=== PATIENT | male | born 1960 | race Caucasian/White ===

== ENCOUNTER 2017-06-10 09:19 | Day surgery (SDC) | payer BC ==
[2017-06-07 12:29] VITALS: BMI 25.2
[2017-06-10] VITALS (14 sets, daily range): BP systolic 110–144; BP diastolic 72–84; PULSE 70–84; RESP 12–23; Ht 180.3 cm; Wt 80.9 kg
[~2017-06-10] VITALS: Ht 180.3 cm; Wt 80.9 kg
[~2017-06-10 09:19] MED LIST: EPHEDrine SULFATE 50 MG/5 ML SYG ONE
[2017-06-10] MEDS ORDERED: CEFAZOLIN 2 GM/50 ML (PMX) 50 ML IVPB ONE (10:00)
[2017-06-10] MEDS ORDERED: SOD CHLORIDE 0.9% 1,000 ML IV ONE (10:00)
[2017-06-10] MEDS ORDERED: BUPIVACAINE 0.25% (MPF) 30 ML INJ ONE (10:38)
[2017-06-10] MEDS ORDERED: POLYMYXIN/BACITRACIN 1L IRRIG ONE (11:50)
[2017-06-10] MEDS ORDERED: PROCHLORPERAZINE 10 MG INJ IV PRN (12:00)
[2017-06-10] MEDS ORDERED: OXYCODONE/ACETAMINOPHEN (5/325) TAB PO PRN (12:00)
[2017-06-10] MEDS ORDERED: MEPERIDINE 25 MG INJ IV PRN (12:00)
[2017-06-10] MEDS ORDERED: ONDANSETRON 4 MG INJ IV PRN (12:00)
[2017-06-10] MEDS ORDERED: HYDROmorphONE (0.2 MG/ML) 10ML SYG IV PRN (12:00)
[2017-06-10] MEDS ORDERED: FENTAnyl 50 MCG/ML VIAL IV PRN (12:00)
[2017-06-10] MEDS ORDERED: DIPHENHYDRAMINE 50 MG INJ IV PRN (12:00)
[2017-06-10] MEDS ORDERED: SUCCINYLCHOLINE CHLORIDE 100 MG/5 ML SYG IV ONE (12:53)
[2017-06-10] MEDS ORDERED: PROPOFOL 20 ML ONE (12:53)
[2017-06-10] MEDS ORDERED: LIDOCAINE 2% (SDV) 5 ML INJ ONE (12:53)
[2017-06-10] MEDS ORDERED: ROCURONIUM 50 MG INJ ONE (12:53)
[2017-06-10] MEDS ORDERED: FENTAnyl 50 MCG/ML VIAL ONE (12:53)
[2017-06-10] MEDS ORDERED: MIDAZOLAM 1 MG/ML 2 ML INJ ONE (12:53)
[2017-06-10] MEDS ORDERED: ONDANSETRON 4 MG INJ ONE (13:07)
[2017-06-10] MEDS ORDERED: FAMOTIDINE 20 MG INJ ONE (13:07)
[2017-06-10] MEDS ORDERED: DEXAMETHASONE 4 MG/ML 1 ML INJ ONE (13:07)
[2017-06-10] MEDS ORDERED: CEFAZOLIN 1 GM INJ ONE (13:07)
[2017-06-10] MEDS ORDERED: NEOSTIGMINE 3 MG/3 ML SYRINGE ONE (13:16)
[2017-06-10] MEDS ORDERED: GLYCOPYRROLATE 0.4 MG INJ ONE (13:16)
[2017-06-10] MEDS ORDERED: KETOROLAC 30 MG INJ ONE (13:40)
--- NOTE | 2017-06-10 13:48 | OPR ---
Date/Time of Note Date/Time of Note DATE: 06/10/17 TIME: 13:44 Operative Report Procedure Date: Jun 10, 2017 Preoperative Diagnosis left inguinal hernia large incarcerated Postoperative Diagnosis same Operation/Procedure Performed 1. open left incarcerated inguinal hernia repair with ultrapro hernia system large mesh 2. 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 He requests surgical repair. Risks alternatives benefits and percent were discussed the patient. Patient's best understanding consents to the operation. Procedure Description Patient is taken to the OR and prepped and draped in usual sterile fashion. Surgical timeout was performed. IV antibiotics given. Left inguinal oblique incision is made with a 10 blade. Dissection cautery was carried onto the fascia. The extremity fascia is opened with a 15 blade. This incision extended medially inferiorly lateral superiorly with Metzenbaum scissors. Cord structures identified and encircled with a [place] drain. Large incarcerated indirect hernia was identified. This was reduced manually from the scrotal sac. The hernia sac was identified isolated and reduced into the abdomen. This area was bolstered with the distal portion of the ultrapure hernia system mesh. This mesh was secured in place with a running 0 Prolene from the pubic tubercle along the shelving of the inguinal ligament. Superiorly this mesh was secured to the internal oblique with interrupted 3-0 Vicryl. [place] mesh is secured in a similar fashion with a running 0 Prolene from the pubic tubercle along the shelving edge of inguinal ligament. Structure creating reapproximated with interrupted oh point around the cord structures to re- create the inguinal ring. [place] mesh is secured to the internal oblique with interrupted 3-0 Vicryl. Externally fascia was closed with running 3-0 Vicryl. Elier's fascia is closed with interrupted 3-0 Vicryl. Skin is closed using skin len. Therapeutic subcutaneous local anesthesia was injected throughout the incision site. Dry dressings were applied. Domenico CHAVEZ Jun 10, 2017 13:48
[2017-06-10] MEDS ORDERED: HYDROCODONE/APAP (5/325) TAB PO ONE (14:00)
== END 2017-06-13 09:33 | disposition home or self-care (01) ==
LOC: SDS 09:19
PROVIDERS: ATTEND Surgery
DX: K40.30 Unilateral inguinal hernia, with obstruction, without gangrene, not specified as recurrent (principal)
CPT/HCPCS: 49507; 85025; C1781; J0690; J1100; J1885; J2250; J2405; J2710; J3010